=== PATIENT | female | born 1990 | race Caucasian/White ===

== ENCOUNTER 2022-11-13 18:49 | Emergency (ER) | payer MEDICAID, SELFPAY ==
--- NOTE | ~2022-11-13 | US_ITS ---
EXAMINATION: US OB <=14 wk fetus w TV DATE: 11/13/2022 21:38 INDICATION: . Vaginal bleeding. TECHNIQUE: Real-time transabdominal and transvaginal pelvic ultrasound was performed. COMPARISON: None. FINDINGS: TRANSABDOMINAL ULTRASOUND: The uterus measures 10.7 x 5.7 x 7.3 cm. TRANSVAGINAL ULTRASOUND: There is an intrauterine gestational sac. A yolk sac is identified. The fet al crown rump length measures 1.8 cm, which correlates with an estimated gestational age of 8 weeks a nd 2 day(s) (+/-) 5 day(s). heart motion is identified measuring 173 beats per minute (bpm) by M-mode Doppler. The right ovary measures 2.5 x 1.3 x 1.8 cm. The left ovary measures 3.4 x 2.0 x 2.1 cm. There is no free fluid in the pelvis. IMPRESSION: 1. Single living intrauterine gestation with estimated date of delivery of 06/23/2023. Reviewed, dictated and finalized at location E. IMPRESSION: 1. Single living intrauterine gestation with estimated date of delivery of 06/11.
[2022-11-13 19:13] VITALS: BP 129/54; PULSE 89; RESP 16; TEMP 36.9; O2SAT 100
--- NOTE | 2022-11-13 20:19 | ED.PREGNANCY ---
HPI - General Chief complaint: Vaginal Bleeding Stated complaint: 8 wks preg with bleeding Time Seen by Provider: 11/13/22 19:39 History of Present Illness HPI Narrative: Patient presents to the emergency department after being seen acutely hospital. She is G1, P0. Started having vaginal bleeding earlier today. She was seen at an outside hospital and was told they could do nothing they told her to come here per patient. Patient has gone through 3 pads since she started bleeding 3-1/2 hours ago. She denies abdominal cramping currently. She has not had an appointment with her OB yet. Related Data Allergies Allergy/AdvReac Type Severity Reaction Status Date / Time No Known Allergies Allergy Verified 11/13/22 19:12 Review of Systems Review of Systems: Review of systems negative except what is documented in the HPI Exam Narrative: GENERAL: Well-appearing, well-nourished, and in no acute distress. HEAD: Normocephalic, atraumatic. EYES: PERRLA and EOMI. ENT: Nares clear, no rhinorrhea or epistaxis. Mucous membranes moist. NECK: Supple. CHEST: Clear to auscultation. No respiratory distress. HEART: Regular rate and rhythm. ABDOMEN: Soft, nontender, nondistended. EXTREMITIES: Normal range of motion. No edema. SKIN: Warm, dry, no rash. NEURO: No focal deficits. Alert and oriented x3. PSYCH: Normal mood and affect. Course Course Emergency Course: Patient does not have excessive bleeding. Labs and ultrasound ordered. Ultrasound ordered because she has not had an ultrasound during this Differential diagnosis includes but not limited to incomplete miscarriage, bleeding in , complete miscarriage 23:29 PM Bleeding has slowed significantly. Ultrasound shows live IUP with 8 weeks gestation. Labs including white blood cell count are unremarkable. Beta hCG 125,000 Vital Signs Vital signs: Vital Signs Temperature 36.9 C 11/13/22 19:13 Pulse Rate 89 11/13/22 19:13 Respiratory Rate 16 11/13/22 19:13 Blood Pressure 129/54 L 11/13/22 19:13 Pulse Oximetry 100 11/13/22 19:13 Oxygen Delivery Room Air 11/13/22 19:13 Temperature 36.9 C 11/13/22 19:13 Pulse Rate 89 11/13/22 19:13 Respiratory Rate 16 11/13/22 19:13 Blood Pressure 129/54 L 11/13/22 19:13 Pulse Oximetry 100 11/13/22 19:13 Oxygen Delivery Room Air 11/13/22 19:13 MDM - OB/Uterine Contractions Lab Data 11/13/22 20:13 11/13/22 20:13 Labs: Lab Results 11/13/22 11/13/22 Range/Units 20:13 21:47 WBC 7.5 (4.5-10.0) K/mm3 RBC 4.82 (4.2-5.4) M/mm3 Hgb 13.3 (12.0-15.0) g/dL Hct 39.9 (37.0-47.0) % MCV 82.8 (80-100) fl MCH 27.6 (26-34) pg MCHC 33.3 (32-36) g/dl RDW 13.1 (11.5-14.5) % Plt Count 149 L (150-375) k/mm3 MPV 11.7 H (7.4-10.4) fl Immature Gran % (Auto) 0.4 (0-0.5) % Neut % (Auto) 77.4 H (45.5-73.1) % Lymph % (Auto) 15.2 L (18.3-44.2) % [place] % (Auto) 5.8 (2.6-8.5) % Eos % (Auto) 0.9 (0-4.4) % Baso % (Auto) 0.3 (0.2-1.2) % Lymph # (Auto) 1.13 (0.9-3.2) K/mm3 [place] # (Auto) 0.4 (0.1-0.6) K/mm3 Eos # (Auto) 0.1 (0-0.3) K/mm3 Baso # (Auto) 0.0 (0.0-0.1) K/mm3 Abs Immat Gran (auto) 0.03 (0.00-0.031) K/mm3 Absolute Neuts (auto) 5.8 (1.3-6.7) K/mm3 Absolute Nucleated RBC 0.0 (0.0-0.012) K/mm3 Nucleated RBC % 0.0 (0.0-0.2) % Sodium 134 L (137-145) mmol/L Potassium 3.8 (3.4-5.0) mmol/L Chloride 104 (98-107) mmol/L Carbon Dioxide 23 (22-30) mmol/L Anion Gap 7 L (8-16) mmol/L BUN 7 (7-17) mg/dL Creatinine 0.60 L (0.7-1.0) mg/dL Estim Creat Clear Calc 111 ml/min Estimated GFR > 60 (59 - ) Glucose 93 (65-110) mg/dL Calcium 9.0 (8.4-10.2) mg/dL Total Bilirubin 0.5 (0.2-1.3) mg/dL AST 24 (14-36) U/L ALT 21 (6-35) U/L Alkaline Phosphatase 62 (38-126) U/L Total Protein 7.0 (6.3-8.2) g/dL [place]
[2022-11-13 20:26] LABS: Basophils Percent Auto 0.3 % (0.2-1.2); Eosinophils Absolute Auto 0.1 K/mm3 (0-0.3); Eosinophils Percent Auto 0.9 % (0-4.4); Hematocrit 39.9 % (37.0-47.0); Hemoglobin 13.3 g/dL (12.0-15.0); Immature Granulocyte Absolute 0.03 K/mm3 (0.00-0.031); Immature Granulocyte Percent A 0.4 % (0-0.5); Lymphocytes Absolute Auto 1.13 K/mm3 (0.9-3.2); Lymphocytes Percent Auto 15.2 % (18.3-44.2); Mean Corpuscular HGB Conc 33.3 g/dl (32-36); Mean Corpuscular Hemoglobin 27.6 pg (26-34); Mean Corpuscular Volume 82.8 fl (80-100); Mean Platelet Volume 11.7 fl (7.4-10.4); Monocytes Absolute Auto 0.4 K/mm3 (0.1-0.6); Monocytes Percent Auto 5.8 % (2.6-8.5); Neutrophils Absolute Auto 5.8 K/mm3 (1.3-6.7); Neutrophils Percent Auto 77.4 % (45.5-73.1); Platelet Count Result 149 k/mm3 (150-375); Red Blood Count 4.82 M/mm3 (4.2-5.4); Red Cell Distribution Width 13.1 % (11.5-14.5); White Blood Count 7.5 K/mm3 (4.5-10.0)
[2022-11-13 20:35] LABS: Alanine Aminotransferase 21 U/L (6-35); Albumin Level 4.3 g/dL (3.5-5.1); Alkaline Phosphatase 62 U/L (38-126); Anion Gap 7 mmol/L (8-16); Aspartate Amino Transferase 24 U/L (14-36); Bilirubin,Total 0.5 mg/dL (0.2-1.3); Blood Urea Nitrogen 7 mg/dL (7-17); Carbon Dioxide 23 mmol/L (22-30); Chloride 104 mmol/L (98-107); Estimated CRCL calculation 111 ml/min; Estimated Glomerular Filt Rate > 60; Glucose 93 mg/dL (65-110); Potassium 3.8 mmol/L (3.4-5.0); Sodium 134 mmol/L (137-145)
[2022-11-13 22:00] LABS: Appearance Urine Cloudy (Clear); Bacteria Urine None Seen /hpf; Bilirubin Urine Negative (Negative); Blood Urine 2+ (Negative); Color Urine Yellow (Yellow); Glucose Urine UA Negative (Negative); Ketones Urine Negative (Negative); Leukocyte Esterase Ur Negative LEU/UL (Negative); Nitrate Urine Negative (Negative); Non Pathogenic Casts 0-2; Protein Urine Negative (Negative); RBC Urine 0-2 /hpf (0-2); Specific Grav Ur 1.007 (1.001-1.035); Squamous Epithelial Cell Urine None seen /hpf (Few); Urobilinogen Urine 0.2 mg/dL (<2.0); WBC Urine 0-5 /hpf; pH Urine 5.5 (5.0-9.0)
[2022-11-13 22:09] LABS: Add Urine Microscopic? YES
== END 2022-11-14 00:10 | disposition home or self-care (01) ==
PROVIDERS: Emergency Provider Emergency Medicine; PCP Obstetrics & Gynecology
DX: O20.9 Hemorrhage in early pregnancy, unspecified (principal); Z3A.08 8 weeks gestation of pregnancy
CPT/HCPCS: 36415; 76801; 76817; 80053; 81001; 84702; 85025; 86900; 86901; 99284

== ENCOUNTER 2023-05-17 05:15 | Observation (INO) | payer OTHER, SELFPAY ==
[2023-05-17] VITALS (29 sets, daily range): BP systolic 114–126; BP diastolic 56–80; PULSE 76–103; O2SAT 95–100
--- NOTE | 2023-05-17 07:25 | OBADM ---
This patient, Shayy Freeman, admitted to the OB room OB Post 115 for observation. Patient/family oriented to hospital policies and general routines including ID bracelet, bed and alarms, visiting hours, pain management, procedures, bathroom and other care routines, personal items, smoking policy, room service/diet, and visiting hours. Patient/Family are encouraged to report perceived risks to care and to ask questions if they do not understand what they are told or what they should do.
--- NOTE | 2023-06-05 21:57 | PM.OBTRLD ---
OB - Triage/Final Diagnosis Visit Information Comments/Additional reasons for admission: I have assessed the risk for this patient, Shayy Freeman, and determined that she would benefit from observation care. Final Diagnosis (1) Fall: Code(s): W19.XXXA - Unspecified fall, initial encounter Status: Acute
== END 2023-05-17 07:25 | disposition home or self-care (01) ==
PROVIDERS: Admitting Provider Obstetrics & Gynecology; PCP Internal Medicine; Visit Provider Obstetrics & Gynecology
DX: Z04.3 Encounter for examination and observation following other accident (principal); W19.XXXA Unspecified fall, initial encounter; Z3A.34 34 weeks gestation of pregnancy
CPT/HCPCS: G0378; G0379

== ENCOUNTER 2023-06-05 01:59 | Observation (INO) | payer OTHER, SELFPAY ==
[2023-06-05 02:30] VITALS: BP 127/69; PULSE 93
[2023-06-05 02:45] VITALS: BP 116/78; PULSE 91
[2023-06-05 03:00] VITALS: BP 119/66; PULSE 89
--- NOTE | 2023-06-05 03:05 | OBADM ---
This patient, Shayy Freeman, admitted to the OB room OB Post 116 for observation. Patient/family oriented to hospital policies and general routines including ID bracelet, bed and alarms, visiting hours, pain management, procedures, bathroom and other care routines, personal items, smoking policy, room service/diet, and visiting hours. Patient/Family are encouraged to report perceived risks to care and to ask questions if they do not understand what they are told or what they should do.
--- NOTE | 2023-06-07 02:51 | PM.OBTRLD ---
OB - Triage/Final Diagnosis Visit Information Comments/Additional reasons for admission: I have assessed the risk for this patient, Shayy Freeman, and determined that she would benefit from observation care. Final Diagnosis (1) Elevated blood pressure affecting in third trimester, antepartum: Code(s): O16.3 - Unspecified maternal hypertension, third trimester Status: Acute
== END 2023-06-05 03:26 | disposition home or self-care (01) ==
LOC: ANHOBOP 02:05 → ANHOBPP 02:05 → ANHOBOP 02:49 → ANHOBPP 02:49
PROVIDERS: Admitting Provider Obstetrics & Gynecology; PCP Internal Medicine; Visit Provider Obstetrics & Gynecology
DX: O16.3 Unspecified maternal hypertension, third trimester (principal); Z3A.31 31 weeks gestation of pregnancy
CPT/HCPCS: 59025; G0378; G0379

== ENCOUNTER 2023-06-05 10:30 | Inpatient (IN) | payer OTHER, SELFPAY ==
[2023-06-05] VITALS (128 sets, daily range): BP systolic 93–155; BP diastolic 35–103; PULSE 73–233; TEMP 36.5–37.1; O2SAT 98–100; BMI 35.0
[2023-06-05 11:28] LABS: Basophils Percent Auto 0.3 % (0.2-1.2); Eosinophils Absolute Auto 0.1 K/mm3 (0-0.3); Eosinophils Percent Auto 1.1 % (0-4.4); Hematocrit 33.1 % (37.0-47.0); Hemoglobin 10.5 g/dL (12.0-15.0); Immature Granulocyte Absolute 0.06 K/mm3 (0.00-0.031); Immature Granulocyte Percent A 0.9 % (0-0.5); Lymphocytes Absolute Auto 0.98 K/mm3 (0.9-3.2); Lymphocytes Percent Auto 15.2 % (18.3-44.2); Mean Corpuscular HGB Conc 31.7 g/dl (32-36); Mean Corpuscular Hemoglobin 25.9 pg (26-34); Mean Corpuscular Volume 81.7 fl (80-100); Mean Platelet Volume 12.4 fl (7.4-10.4); Monocytes Absolute Auto 0.5 K/mm3 (0.1-0.6); Monocytes Percent Auto 7.2 % (2.6-8.5); Neutrophils Absolute Auto 4.8 K/mm3 (1.3-6.7); Neutrophils Percent Auto 75.3 % (45.5-73.1); Platelet Count Result 113 k/mm3 (150-375); Red Blood Count 4.05 M/mm3 (4.2-5.4); Red Cell Distribution Width 14.9 % (11.5-14.5); White Blood Count 6.4 K/mm3 (4.5-10.0)
[2023-06-05] MEDS: miSOPROStol 25 MCG TABLET 50 MCG SUBLINGUAL (11:34)
--- NOTE | 2023-06-05 11:38 | LDADM ---
This patient, Shayy Freeman, was admitted to Labor/Delivery/Recovery 103 on 06/05/23 at 10:30. Plans for labor, pain management and were discussed with patient. Patient/family oriented to hospital policies and general routines including ID bracelet, bed and alarms, visiting hours, pain management, procedures, bathroom and other care routines, personal items, smoking policy, room service/diet and guest tray routines, infant security routines, and visiting hours. Patient/Family are encouraged to report perceived risks to care and to ask questions if they do not understand what they are told or what they should do. See OBIX for further documentation.
[2023-06-05 11:39] LABS: Alanine Aminotransferase 13 U/L (6-35); Albumin Level 3.3 g/dL (3.5-5.1); Alkaline Phosphatase 138 U/L (38-126); Anion Gap 7 mmol/L (4-12); Aspartate Amino Transferase 20 U/L (14-36); Bilirubin,Total 0.4 mg/dL (0.2-1.3); Blood Urea Nitrogen 5 mg/dL (7-17); Calcium 9.2 mg/dL (8.4-10.2); Carbon Dioxide 18 mmol/L (22-30); Chloride 111 mmol/L (98-107); Estimated Glomerular Filt Rate > 60; Glucose 110 mg/dL (65-110); Potassium 3.3 mmol/L (3.4-5.0); Sodium 136 mmol/L (137-145)
--- NOTE | 2023-06-05 13:16 | P.HP_ITS ---
H&P: HPI History of Present Illness Date/Time: 06/05/23 13:16 Chief Complaint: gestational htn Narrative: Patient is a 32 year old who presents from the office for medical induction of labor indicated for gestational hypertension. She has had intermittently elevated blood pressures, and met criteria today in office. She denies headaches, vision changes, chest pain, dyspnea, RUQ pain or epigastric pain. Her has been otherwise complicated by gestational thrombocytopenia. She reports good movement, no ctx, LOF, or VB. Review of Systems Review of Systems: All systems reviewed & are unremarkable except as noted in HPI and below PMFSH Family History Family History Grandparent Hypertension Father Diabetes mellitus Grandparent Diabetes mellitus Mother Diabetes mellitus Social History Social History Smoking status: Never smoker Second hand tobacco smoke exposure: No Substance use: never Do You Feel Safe in your Home?: Yes Lack of Transportation: No Lack of Food: Never True Current Housing: I Have Housing Concerned About Future Housing: No Difficulty Paying Gas/Electric Bills: No Difficulty Paying for Meds: No Currently Unemployed: No Education: Associate Degree Difficulty w/ Childcare or Family Care: No Spiritual care concerns: No Meds Home Medications and Allergies Home Medications Medication Instructions Recorded Confirmed Type cholecalciferol (vitamin D3) 50 50 mcg PO DAILY 05/25/23 06/05/23 History mcg (2,000 unit) tablet prenat.vits,zonia,[id number] 1 tablet 05/25/23 History Allergies Allergy/AdvReac Type Severity Reaction Status Date / Time No Known Allergies Allergy Verified 11/13/22 19:12 Vital Signs Vital Signs - 24 hr 06/05/23 11:38 06/05/23 12:08 06/05/23 12:16 Pulse Rate 85 85 Blood Pressure 135/68 121/44 L Oxygen Delivery Room Air 06/05/23 12:30 06/05/23 12:44 06/05/23 12:59 Pulse Rate 91 84 91 Blood Pressure 120/82 131/70 139/85 Oxygen Delivery 06/05/23 13:14 Pulse Rate 89 Blood Pressure 140/83 Oxygen Delivery Exam Const: General: comfortable and no acute distress HENMT: Mouth: Yes moist mucous membranes Eyes: General: appearance normal, both eyes and all related structures Resp: Effort & Inspection: normal respiratory effort Cardio: Rate: regular rate Rhythm: regular rhythm GI: GI Palp: Yes Soft to palpation and No Tenderness to palpation present (GI) : Other: 50/-3 in office Skin: General skin exam: normal color Neuro: Sensory Exam: normal sensation Extrem: General: normal to inspection Psych: Mental Status: mental status grossly normal H&P: Results Labs Labs: Short CBC 06/05/23 Range/Units 11:17 WBC 6.4 (4.5-10.0) K/mm3 Hgb 10.5 L (12.0-15.0) g/dL Hct 33.1 L (37.0-47.0) % Plt Count 113 L (150-375) k/mm3 BMP 06/05/23 11:17 Sodium 136 L Potassium 3.3 L Chloride 111 H Carbon Dioxide 18 L BUN 5 L Creatinine 0.40 L Glucose 110 Calcium 9.2 Liver Function 06/05/23 Range/Units 11:17 Total Bilirubin 0.4 (0.2-1.3) mg/dL AST 20 (14-36) U/L ALT 13 (6-35) U/L Alkaline Phosphatase 138 H (38-126) U/L Albumin 3.3 L (3.5-5.1) g/dL Assessment and Plan Assessment and plan (1) Gestational hypertension: Code(s): O13.9 - Gestational [-induced] hypertension without significant protei suman, unspecified trimester Status: Acute Assessment and Plan: - asymptomatic - BP 140s/80s in office and at home - met criteria in office today - labs wnl aside from thrombocytopenia as below, does not meet threshold for <100K for preeclampsia with severe features - recommend induction of labor given gestational age and gHTN diagnosis - cytotec 50mcg given buccally, gonzalez balloon placed without issue (2) Gestational thrombocytopenia: Code(s): O99.119 - Other diseases of the blood and blood-forming organs and certain disorders involving the immune mechanism complicating , unspecified trimester; D69.6 - Thrombocytopenia, unspecified Status: Acute Assessment and Plan: - mild thrombocytopenia throughout - Plt 115 on admission - continue to monitor closely - unlikely 2/2 preeclampsia given known thrombocytopenia earlier in and continues to stay above 100K
[2023-06-05] MEDS: LACTATED RINGERS 1,000 ML 125 ML IV CONT ×2 (16:58→23:39)
[2023-06-05] MEDS: OXYTOCIN 30 UNITS/NS 500 ML 30 UNITS/500 ML BAG IV CONT (16:59)
--- NOTE | 2023-06-05 17:38 | P.PNAN_ITS ---
Anes - Eval Pre Procedure Procedure: labor epidural Date/Time: 06/05/23 17:38 Pre Op Diagnosis: IOL Patient Data Age: 32 Gender: F Height: 1.7 m Weight: 101.5 kg Last Vital Signs Temp 36.5 C 06/05/23 17:33 Pulse 98 06/05/23 17:29 BP 141/82 H 06/05/23 17:29 O2 Del Method Room Air 06/05/23 11:38 Allergies Allergy/AdvReac Type Severity Reaction Status Date / Time No Known Allergies Allergy Verified 11/13/22 19:12 Home Medications Medication Instructions Recorded Confirmed Type cholecalciferol (vitamin D3) 50 50 mcg PO DAILY 05/25/23 06/05/23 History mcg (2,000 unit) tablet prenat.vits,zonia,cgv-wxpu-xwkiw 1 tablet 05/25/23 History Laboratory Tests 06/05/23 11:17 WBC 6.4 K/mm3 (4.5-10.0) RBC 4.05 L M/mm3 (4.2-5.4) Hgb 10.5 L g/dL (12.0-15.0) Hct 33.1 L % (37.0-47.0) MCV 81.7 fl (80-100) MCH 25.9 L pg (26-34) MCHC 31.7 L g/dl (32-36) RDW 14.9 H % (11.5-14.5) Plt Count 113 L k/mm3 (150-375) MPV 12.4 H fl (7.4-10.4) Immature Gran % (Auto) 0.9 H % (0-0.5) Neut % (Auto) 75.3 H % (45.5-73.1) Lymph % (Auto) 15.2 L % (18.3-44.2) [place] % (Auto) 7.2 % (2.6-8.5) Eos % (Auto) 1.1 % (0-4.4) Baso % (Auto) 0.3 % (0.2-1.2) Lymph # (Auto) 0.98 K/mm3 (0.9-3.2) [place] # (Auto) 0.5 K/mm3 (0.1-0.6) Eos # (Auto) 0.1 K/mm3 (0-0.3) Baso # (Auto) 0.0 K/mm3 (0.0-0.1) Abs Immat Gran (auto) 0.06 H K/mm3 (0.00-0.031) Absolute Neuts (auto) 4.8 K/mm3 (1.3-6.7) Absolute Nucleated RBC 0.000 K/mm3 (0.0-0.012) Nucleated RBC % 0.0 % (0.0-0.2) Sodium 136 L mmol/L (137-145) Potassium 3.3 L mmol/L (3.4-5.0) Chloride 111 H mmol/L (98-107) Carbon Dioxide 18 L mmol/L (22-30) Anion Gap 7 mmol/L (4-12) BUN 5 L mg/dL (7-17) Creatinine 0.40 L mg/dL (0.7-1.0) Estim Creat Clear Calc Not Reportable Estimated GFR > 60 (59 - ) Glucose 110 mg/dL (65-110) Calcium 9.2 mg/dL (8.4-10.2) Total Bilirubin 0.4 mg/dL (0.2-1.3) AST 20 U/L (14-36) ALT 13 U/L (6-35) Alkaline Phosphatase 138 H U/L (38-126) Total Protein 6.0 L g/dL (6.3-8.2) Albumin 3.3 L g/dL (3.5-5.1) RPR Pending Blood Type A Positive Antibody Screen Negative Patient hx anesthesia problems: none Family hx anesthesia problems: none Results Review: All pre-operative results and documents have been reviewed as part of the pre- operative evaluation. [facility] Family History Family History Grandparent Hypertension Father Diabetes mellitus Grandparent Diabetes mellitus Mother Diabetes mellitus Social History Social History Smoking status: Never smoker Second hand tobacco smoke exposure: No Substance use: never Do You Feel Safe in your Home?: Yes Lack of Transportation: No Lack of Food: Never True Current Housing: I Have Housing Concerned About Future Housing: No Difficulty Paying Gas/Electric Bills: No Difficulty Paying for Meds: No Currently Unemployed: No Education: Associate Degree Difficulty w/ Childcare or Family Care: No Spiritual care concerns: No Exam Day of Procedure 06/05/23 17:38 Patient weight: No obese Heart: regular rate and rhythm Lungs: normal air movement Airway: Mallampati scale Neurological: alert and oriented
[2023-06-06] VITALS (31 sets, daily range): BP systolic 104–138; BP diastolic 40–92; PULSE 83–105; RESP 16–18; TEMP 36.6–37.6; O2SAT 97–100
--- NOTE | 2023-06-06 01:52 | PM.OBPRVD ---
OB - Vaginal Delivery Note Procedure Delivery date: 06/06/23 Events: Gestational Hypertension Induction method: Per Misoprostol Protocol and Other (gonzalez balloon) Delivery augmentation: Rupture of Membranes and Pitocin Delivery monitor: External FHT and Internal Uterine Route of delivery: Episiotomy description: None Laceration Description: Perineal - 2nd Degree Delivery repair: vicryl Specimen: No Quantitative Blood Loss (ml): 150 Anesthesia type: Epidural Disposition: Floor Complications: No immediate complications Narrative: See H&P and notes for details on patient's admission and labor. She progressed to complete cervical dilation and at the appropriate time began pushing. With adequate expulsive efforts by the mother, the baby's head was delivered without difficulty. Nuchal cord was not present. The baby's right shoulder was anterior and delivered under the pubic symphysis without difficulty. The posterior shoulder and the rest of the baby delivered without difficulty. The umbilical cord was doubly clamped and cut after 60 seconds of delayed cord clamping. Care of the was then assumed by the nursing staff. [place] Baby Date of : 06/06/23 Weeks of gestation at delivery: 37 gender: Female presentation: vertex position: Left Occiput Anterior Placenta delivery description: Manual Removal (cord avulsion, manual extraction of placenta) Cord Vessel Description: 3 Vessels
[2023-06-06] MEDS: OXYTOCIN 30 UNITS/NS 500 ML 30 UNITS/500 ML BAG 125 UNITS IV CONT (02:00)
--- NOTE | 2023-06-06 04:17 | OBPPTRN ---
Patient transferred to post room #284 via w/c. Support person present. Oriented to unit, room, information board, rooming in, admission packet and security measures. Patient verbalizes understanding.
[2023-06-06] MEDS: DOCUSATE SODIUM 100 MG CAPSULE PO ×2 (09:32→16:24)
[2023-06-06] MEDS: IBUPROFEN 600 MG TABLET PO ×2 (09:32→16:24)
[2023-06-06 18:29] LABS: Rapid Plasma Reagin Non-Reactive (NonReactive)
[2023-06-07 01:05] VITALS: BP 123/53; PULSE 103
[2023-06-07] MEDS: ACETAMINOPHEN 325 MG TABLET 650 MG PO ×2 (01:20→16:45)
[2023-06-07] MEDS: IBUPROFEN 600 MG TABLET PO ×3 (01:20→14:39)
[2023-06-07 04:15] VITALS: BP 135/66; PULSE 90; RESP 16; TEMP 37.2; O2SAT 100
[2023-06-07 05:21] LABS: Hematocrit 27.8 % (37.0-47.0); Hemoglobin 8.7 g/dL (12.0-15.0)
[2023-06-07 07:30] VITALS: BP 104/63; PULSE 90; RESP 16; TEMP 36.7; O2SAT 97
[2023-06-07] MEDS: POLYSACCHARIDE IRON COMPLEX 150 MG CAPSULE PO ×2 (07:37→16:36)
--- NOTE | 2023-06-07 07:39 | WPDANLDPN2 ---
Anes-Prog Note L&D Date/Time: 06/07/23 07:39 Neuraxial method: epidural Neuro status: Neuro function grossly intact. Cardiovascular status: normal Respiratory status: normal Airway patency: baseline Mental status: baseline Post-Op hydration status: normal Vital Signs: Last Vital Signs Temp 37.2 C 06/07/23 04:15 Pulse 90 06/07/23 04:15 Resp 16 06/07/23 04:15 BP 135/66 06/07/23 04:15 Pulse Ox 100 06/07/23 04:15 O2 Del Method Room Air 06/07/23 04:15 Pain score (VAS): Patient aleep, no nonverbal signs of pain present at this time. I/O: Intake & Output 06/06/23 06/06/23 06/07/23 15:59 23:59 07:59 Intake Total 480 240 500 Output Total 1200 2750 Balance -720 240 -2250 Post-procedural complaints: none Patient feedback: Patient satisfied with anesthetic care.
[2023-06-07] MEDS: DOCUSATE SODIUM 100 MG CAPSULE PO (07:40)
--- NOTE | 2023-06-07 07:58 | PM.OBPNVD ---
OB - PN: Subj Subjective Date/time seen: 06/07/23 07:58 Interval history: pp day 1 doing well bp normotensive OB - PN: Obj Data Labs 06/07/23 04:19 06/05/23 11:17 Labs: Laboratory Results - last 24 hr 06/05/23 06/07/23 11:17 04:19 Hgb 8.7 L Hct 27.8 L RPR Non-reactive OB - PN A/P Plan day: 1 Plan: routine care Time Spent With Patient Time: Total time spent is greater than 50% in coordination of care (as documented) at patient's floor/unit and/or counseling patient: Review of Systems Review of Systems: All systems reviewed & are unremarkable except as noted in HPI and below Exam Const: General: cooperative and healthy appearing Resp: Effort & Inspection: normal respiratory effort Cardio: Rate: regular rate Psych: Appearance: grossly normal
[2023-06-07 12:30] VITALS: BP 122/80
[2023-06-07 16:14] VITALS: BP 122/73
[2023-06-07 20:26] VITALS: BP 119/60; PULSE 100; RESP 18; TEMP 36.9; O2SAT 100
[2023-06-08 00:05] VITALS: BP 135/71; RESP 106
[2023-06-08 05:00] VITALS: BP 116/57; PULSE 91
[2023-06-08] MEDS: POLYSACCHARIDE IRON COMPLEX 150 MG CAPSULE PO (07:50)
[2023-06-08] MEDS: DOCUSATE SODIUM 100 MG CAPSULE PO (07:50)
[2023-06-08] MEDS: IBUPROFEN 600 MG TABLET PO (07:51)
[2023-06-08 08:29] VITALS: BP 141/87; PULSE 107; RESP 18; TEMP 37.2; O2SAT 100
--- NOTE | 2023-06-08 08:39 | PM.OBPNVD ---
OB - PN: Subj Subjective Date/time seen: 06/08/23 08:40 Interval history: pp day 1 doing well bp normotensive Patient comments: no complaints, pain well controlled and tolerating diet OB - PN: Obj Data Labs 06/07/23 04:19 06/05/23 11:17 OB - PN A/P Plan day: 2 Plan: routine care and discharge home Time Spent With Patient Time: Total time spent is greater than 50% in coordination of care (as documented) at patient's floor/unit and/or counseling patient: Exam Const: General: comfortable and no acute distress Resp: Effort & Inspection: normal respiratory effort Auscultation: no rales, no rhonchi and no wheezes Cardio: Rate: regular rate Heart sounds: no click, no murmurs and no rubs GI: GI Palp: Yes Soft to palpation and No Tenderness to palpation present (GI) Auscultation: normal bowel sounds Extrem: General: normal to inspection, no pedal edema and no calf tenderness
--- NOTE | 2023-06-08 08:41 | PM.OBDSVD ---
DS: Admitting Diagnosis Discharge Date 06/08/2019 Admitting Diagnosis term DS: Discharge Diagnosis Discharge Diagnosis (1) Elevated blood pressure affecting in third trimester, antepartum: Code(s): O16.3 - Unspecified maternal hypertension, third trimester Status: Acute OB - DS: Summary OB Procedures : None OB Procedures Intrapartum: Spontaneous Vag Delivery OB Procedures: : None Peripartum Data Laceration Description: Perineal - 2nd Degree Episiotomy description: None Time Spent with Patient Time attestation: Total time spent providing and/or coordinating discharge services: DS: Data Data Completed and Pending Pending studies at discharge: Pending at discharge 06/06/23 02:21 Surgical [PTH] Routine Discharge Plan Discharge Discharging Clinician: Rylee Lenz Patient Disposition: Home, Self-Care Activity: pelvic rest Diet: regular Patient Instructions: Antibiotic Form Stand Alone Forms: General Discharge Information Follow-up/Referrals: Rylee Lenz MD [Physician] - Discharge Medications: Continued #2 Tablet 1 tablet cholecalciferol (vitamin D3) 50 mcg (2,000 unit) Tablet 50 mcg PO DAILY Rx Instructions: Pt unsure of dosage Date of admission: 06/05/23 10:30 Primary Care Provider: AnoopBrant Admitting Provider: Hamzah Bosch Attending physician on admission: Hamzah Bosch Condition: Stable
[2023-06-08 09:02] VITALS: BP 144/86; PULSE 99
[2023-06-10 11:32] VITALS: BP 129/69; PULSE 97; RESP 18; TEMP 36.7; O2SAT 100
== END 2023-06-08 11:15 | disposition home or self-care (01) | DRG 560 ==
LOC: ANHLDR 10:46 → ANHOB2 06-08 08:42 → ANHLDR 06-10 11:39 → ANHOB2 06-10 11:39
PROVIDERS: Admitting Provider Obstetrics & Gynecology; PCP Internal Medicine; Visit Provider Obstetrics & Gynecology
DX: O13.4 Gestational [pregnancy-induced] hypertension without significant proteinuria, complicating childbirth (principal); Z37.0 Single live birth; Z3A.37 37 weeks gestation of pregnancy; O70.1 Second degree perineal laceration during delivery; O69.89X0 Labor and delivery complicated by other cord complications, not applicable or unspecified
CPT/HCPCS: 36415; 59025; 80053; 85014; 85018; 85025; 86592; 86850; 86900; 86901; 88307; A9270; G0378; G0379; J2590; J2795; J7120

== ENCOUNTER 2023-06-09 17:18 | Observation (INO) | payer OTHER, SELFPAY ==
[2023-06-09] VITALS (12 sets, daily range): BP systolic 128–140; BP diastolic 63–86; PULSE 86–96
[2023-06-09 17:58] LABS: Basophils Percent Auto 0.4 % (0.2-1.2); Eosinophils Absolute Auto 0.2 K/mm3 (0-0.3); Eosinophils Percent Auto 3.2 % (0-4.4); Hematocrit 31.3 % (37.0-47.0); Hemoglobin 9.7 g/dL (12.0-15.0); Immature Granulocyte Absolute 0.12 K/mm3 (0.00-0.031); Immature Granulocyte Percent A 1.7 % (0-0.5); Immature Platelet Fraction Pct 10.9 % (0.9-11.2); Lymphocytes Absolute Auto 1.09 K/mm3 (0.9-3.2); Lymphocytes Percent Auto 15.9 % (18.3-44.2); Mean Corpuscular Hemoglobin 26.6 pg (26-34); Mean Corpuscular Volume 85.8 fl (80-100); Mean Platelet Volume 11.9 fl (7.4-10.4); Monocytes Absolute Auto 0.5 K/mm3 (0.1-0.6); Monocytes Percent Auto 6.8 % (2.6-8.5); Neutrophils Absolute Auto 4.9 K/mm3 (1.3-6.7); Platelet Count Result 130 k/mm3 (150-375); Red Blood Count 3.65 M/mm3 (4.2-5.4); Red Cell Distribution Width 15.1 % (11.5-14.5); White Blood Count 6.9 K/mm3 (4.5-10.0)
[2023-06-09 18:11] LABS: Alanine Aminotransferase 77 U/L (6-35); Albumin Level 3.3 g/dL (3.5-5.1); Alkaline Phosphatase 123 U/L (38-126); Anion Gap 5 mmol/L (4-12); Aspartate Amino Transferase 51 U/L (14-36); Bilirubin,Total 0.4 mg/dL (0.2-1.3); Blood Urea Nitrogen 5 mg/dL (7-17); Calcium 8.8 mg/dL (8.4-10.2); Carbon Dioxide 24 mmol/L (22-30); Chloride 109 mmol/L (98-107); Estimated Glomerular Filt Rate > 60; Glucose 87 mg/dL (65-110); Potassium 3.3 mmol/L (3.4-5.0); Sodium 138 mmol/L (137-145); Uric Acid 4.3 mg/dL (2.5-7.5)
--- NOTE | 2023-06-09 18:51 | PC.NURSE ---
1850--Report to Dr. Lenz re: pt's reports of h/a unrelieved by Tylenol, and elevated BP's at home. Report v.s., assessment data, and lab results. Orders to keep pt. and redraw labs at 0200, give Fiorcet 2tabs X2 p.o. for h/a.
[2023-06-09] MEDS: ACETAMINOPHEN/BUTALBITAL/CAFFEINE 325-50-40 MG TABLET (FIORICET) 2 TAB PO (22:13)
[2023-06-10] VITALS: BP 138/74; PULSE 86
[2023-06-10 01:00] VITALS: BP 136/72; PULSE 84
[2023-06-10 02:00] VITALS: BP 135/84; PULSE 92
[2023-06-10 02:15] LABS: Basophils Percent Auto 0.3 % (0.2-1.2); Eosinophils Absolute Auto 0.2 K/mm3 (0-0.3); Eosinophils Percent Auto 2.8 % (0-4.4); Hematocrit 27.8 % (37.0-47.0); Hemoglobin 8.7 g/dL (12.0-15.0); Immature Granulocyte Absolute 0.09 K/mm3 (0.00-0.031); Immature Granulocyte Percent A 1.4 % (0-0.5); Lymphocytes Percent Auto 15.4 % (18.3-44.2); Mean Corpuscular HGB Conc 31.3 g/dl (32-36); Mean Corpuscular Hemoglobin 26.5 pg (26-34); Mean Corpuscular Volume 84.8 fl (80-100); Mean Platelet Volume 11.3 fl (7.4-10.4); Monocytes Absolute Auto 0.4 K/mm3 (0.1-0.6); Monocytes Percent Auto 6.3 % (2.6-8.5); Neutrophils Absolute Auto 4.8 K/mm3 (1.3-6.7); Neutrophils Percent Auto 73.8 % (45.5-73.1); Platelet Count Result 120 k/mm3 (150-375); Red Blood Count 3.28 M/mm3 (4.2-5.4); Red Cell Distribution Width 15.3 % (11.5-14.5); White Blood Count 6.5 K/mm3 (4.5-10.0)
[2023-06-10 02:23] LABS: Alanine Aminotransferase 57 U/L (6-35); Albumin Level 2.8 g/dL (3.5-5.1); Alkaline Phosphatase 103 U/L (38-126); Anion Gap 2 mmol/L (4-12); Aspartate Amino Transferase 38 U/L (14-36); Bilirubin,Total 0.4 mg/dL (0.2-1.3); Blood Urea Nitrogen 6 mg/dL (7-17); Calcium 8.2 mg/dL (8.4-10.2); Carbon Dioxide 23 mmol/L (22-30); Chloride 111 mmol/L (98-107); Estimated Glomerular Filt Rate > 60; Glucose 96 mg/dL (65-110); Potassium 3.6 mmol/L (3.4-5.0); Sodium 136 mmol/L (137-145); Uric Acid 4.6 mg/dL (2.5-7.5)
--- NOTE | 2023-06-10 02:26 | PC.NURSE ---
Talked to Dr. Lenz at this time. Reported maternal condition and lab work. DC orders given at this time.
--- NOTE | 2023-06-30 20:31 | PM.OBTRLD ---
OB - Triage/Final Diagnosis Visit Information Comments/Additional reasons for admission: I have assessed the risk for this patient, Shayy Freeman, and determined that she would benefit from observation care. Evaluation Laboratory results: Laboratory Tests 06/09/23 06/10/23 17:47 02:00 WBC 6.9 6.5 RBC 3.65 L 3.28 L Hgb 9.7 L 8.7 L Hct 31.3 L 27.8 L MCV 85.8 D 84.8 MCH 26.6 26.5 MCHC 31.0 L 31.3 L RDW 15.1 H 15.3 H Plt Count 130 L 120 L MPV 11.9 H 11.3 H Immature Gran % (Auto) 1.7 H 1.4 H Neut % (Auto) 72.0 73.8 H Lymph % (Auto) 15.9 L 15.4 L [place] % (Auto) 6.8 6.3 Eos % (Auto) 3.2 2.8 Baso % (Auto) 0.4 0.3 Lymph # (Auto) 1.09 1.00 [place] # (Auto) 0.5 0.4 Eos # (Auto) 0.2 0.2 Baso # (Auto) 0.0 0.0 Abs Immat Gran (auto) 0.12 H 0.09 H Absolute Neuts (auto) 4.9 4.8 Absolute Nucleated RBC 0.000 0.000 Nucleated RBC % 0.0 0.0 % Immature Plt Fraction 10.9 10.0 Sodium 138 136 L Potassium 3.3 L 3.6 Chloride 109 H 111 H Carbon Dioxide 24 23 Anion Gap 5 2 L BUN 5 L 6 L Creatinine 0.50 L 0.50 L Estim Creat Clear Calc Not Reportable Not Reportable Estimated GFR > 60 > 60 Glucose 87 96 Uric Acid 4.3 4.6 Calcium 8.8 8.2 L Total Bilirubin 0.4 0.4 AST 51 H 38 H ALT 77 H 57 H Alkaline Phosphatase 123 103 Total Protein 6.0 L 5.0 L Albumin 3.3 L 2.8 L Final Diagnosis (1) Gestational hypertension: Code(s): O13.9 - Gestational [-induced] hypertension without significant proteinuria, unspecified trimester Status: Acute
== END 2023-06-10 02:46 | disposition home or self-care (01) ==
PROVIDERS: Admitting Provider Obstetrics & Gynecology; PCP Internal Medicine; Visit Provider Obstetrics & Gynecology
DX: O13.9 Gestational [pregnancy-induced] hypertension without significant proteinuria, unspecified trimester (principal); Z3A.00 Weeks of gestation of pregnancy not specified
CPT/HCPCS: 36415; 80053; 84550; 85025; 85055; A9270; G0378; G0379